=== PATIENT | female | born 1940 ===

== ENCOUNTER 2021-12-04 22:10 | Observation (INO) ==
[2021-12-05] MEDS ORDERED: *HR* Labetalol 20 MG/4 ML SYRINGE IVP ONE ×2 (01:40→04:03)
[2021-12-05 02:04] LABS: Basophils # 0.1 K/mcL (0.0-0.2); Basophils % 0.6 %; Eosinophils # 0.4 K/mcL (0.0-0.6); Eosinophils % 3.9 %; Hematocrit 44.5 % (35.3-44.9); Hemoglobin 14.5 g/dL (11.5-15.4); Immature Granulocytes % 0.3 % (0-4); Lymphocytes # 2.8 K/mcL (0.6-4.6); Lymphocytes % 28.1 %; Mean Corpuscular HGB Conc 32.6 g/dL (31.6-35.5); Mean Corpuscular Hemoglobin 30.7 pg (28.0-33.3); Mean Corpuscular Volume 94.1 fL (83.0-100.0); Mean Platelet Volume 9.1 fL (9.4-12.4); Monocytes # 0.8 K/mcL (0.0-1.3); Monocytes % 8.1 %; Neutrophils # 5.9 K/mcL (1.6-8.9); Platelet Count 318 K/mcL (140-400); Red Blood Count 4.73 M/mcL (3.82-4.97); Red Cell Distribution Width 13.2 % (11.5-14.5)
[2021-12-05 02:23] LABS: INR 0.9; Prothrombin Time 10.2 Seconds (9.4-12.1)
[2021-12-05 02:25] LABS: BUN/Creatinine Ratio 22 (6-26); Blood Urea Nitrogen 22 mg/dL (8-23); Carbon Dioxide 27 mEq/L (23-29); Chloride 105 mEq/L (98-107); Glucose 91 mg/dL (70-105); Osmolality,Calculated 293 (280-300); Potassium 3.7 mEq/L (3.5-5.1); Sodium 140 mEq/L (136-145); eGFR For African Americans > 60 (> 60); eGFR For Non-African Americans 54 (> 60)
[2021-12-05 02:26] LABS: Activated Partial Thrombo Time 26.9 Seconds (26.0-36.0); Troponin I < 0.03 ng/mL (< 0.04)
[2021-12-05 02:40] LABS: Thyroid Stimulating Hormone 5.433 mcIU/mL (0.340-5.600)
[2021-12-05] MEDS ORDERED: niCARdipine 20 MG/200 ML MLS IVC ONE (05:40)
[2021-12-05] MEDS: niCARdipine 20 MG/200 ML MLS IVC SCH ×2 (05:49→15:19)
[2021-12-05] MEDS ORDERED: Naloxone 0.4 MG/ML INJ IVP PRN (06:20)
[2021-12-05] MEDS ORDERED: Melatonin 3 MG TABLET PO PRN (06:20)
[2021-12-05] MEDS ORDERED: Regadenoson 0.4 MG/5 ML SYRINGE IVP ONE (08:52)
[2021-12-05] MEDS: atenoloL 50 MG TABLET PO SCH (12:08)
[2021-12-05] MEDS: lisinopriL 20 MG TABLET PO SCH (12:09)
[2021-12-05] MEDS: Acetaminophen 325 MG TABLET PO PRN (15:23)
[2021-12-05] MEDS ORDERED: traZODone 50 MG TABLET PO SCH (21:00)
[2021-12-06 07:03] LABS: Hematocrit 39.3 % (35.3-44.9); Mean Corpuscular HGB Conc 32.1 g/dL (31.6-35.5); Mean Corpuscular Hemoglobin 30.4 pg (28.0-33.3); Mean Corpuscular Volume 94.7 fL (83.0-100.0); Mean Platelet Volume 9.1 fL (9.4-12.4); Platelet Count 257 K/mcL (140-400); Red Blood Count 4.15 M/mcL (3.82-4.97); Red Cell Distribution Width 13.5 % (11.5-14.5); White Blood Count 8.5 K/mcL (4.3-11.1)
[2021-12-06 07:04] VITALS: BP 174/61; PULSE 62; TEMP 98.3; O2SAT 97
[2021-12-06 07:22] LABS: BUN/Creatinine Ratio 20 (6-26); Blood Urea Nitrogen 20 mg/dL (8-23); Calcium 8.9 mg/dL (8.6-10.3); Carbon Dioxide 27 mEq/L (23-29); Chloride 110 mEq/L (98-107); Glucose 89 mg/dL (70-105); Magnesium 1.7 mg/dL (1.6-2.6); Osmolality,Calculated 298 (280-300); Phosphorous 3.3 mg/dL (2.7-4.5); Potassium 3.7 mEq/L (3.5-5.1); Sodium 143 mEq/L (136-145); eGFR For African Americans > 60 (> 60); eGFR For Non-African Americans 54 (> 60)
[2021-12-06 07:36] LABS: Hemoglobin 12.6 g/dL (11.5-15.4)
[2021-12-06] MEDS: atenoloL 50 MG TABLET PO SCH (08:24)
[2021-12-06] MEDS: lisinopriL 20 MG TABLET PO SCH (08:24)
[2021-12-06] MEDS: Acetaminophen 325 MG TABLET PO PRN (08:28)
[2021-12-06] MEDS ORDERED: amLODIPine 5 MG TABLET PO SCH (09:00)
== END 2021-12-06 10:59 | disposition home or self-care (01) ==
LOC: 3BNU 22:10 → EMEROOARM 22:10 → SUATTDRO 12-05 13:29 → 3BNU 12-05 14:05
PROVIDERS: ADMIT General Practice; ATTEND Family Medicine